=== PATIENT | female | born 1970 | race Two or more races ===

== ENCOUNTER 2018-06-25 07:31 | Day surgery (SDC) | payer OTHER ==
[~2018-06-25 07:31] MED LIST: BISOPROLOL FUMAR5 MG PO
[2018-06-25] MEDS ORDERED: LEVAQUIN750 MG PO (13:28)
== END 2018-06-25 17:15 | disposition home or self-care (01) ==
LOC: CIR.AMB 07:31
DX: S82.851A Displaced trimalleolar fracture of right lower leg, initial encounter for closed fracture (principal)
CPT/HCPCS: 27822; C1889